=== PATIENT | male | born 2000 | race African-American/Black ===

== ENCOUNTER 2022-03-06 16:56 | Emergency (ER) | payer OTHER ==
[~2022-03-06] VITALS: Ht 172.7 cm; Wt 102.8 kg
[2022-03-06] MEDS ORDERED: ALBUTEROL 90 MCG/ACT 8GM HFA INHALER INH ONE (19:50)
[2022-03-06] MEDS ORDERED: ALBU83IN NEB (21:05)
[2022-03-06] MEDS ORDERED: PROAAER10 INH (21:05)
[2022-03-06 21:09] VITALS: BP 134/72
== END 2022-03-06 21:12 | disposition home or self-care (01) ==
LOC: M ED 16:56
DX: J45.901 Unspecified asthma with (acute) exacerbation (principal); Z76.0 Encounter for issue of repeat prescription; Z91.018 Allergy to other foods

== ENCOUNTER → 2022-10-08 | Outpatient (CLI) | payer OTHER ==
[~2022-10-08] MED LIST: ALBU2.5V10 NEB; PROAAER10 INH
== END ==
LOC: M CARPUL 09:23
PROVIDERS: ATTEND Physician Assistant
DX: R06.00 Dyspnea, unspecified (principal)

== ENCOUNTER 2024-03-16 08:53 | Emergency (ER) | payer OTHER ==
[~2024-03-16] VITALS: Ht 175.3 cm; Wt 103.6 kg
[2024-03-16] MEDS: IPRATROPIUM 0.5MG/ALBUTEROL 2.5MG INH SOL UD 3ML (DUONEB) NEB ONE (10:00)
[2024-03-16] MEDS ORDERED: FLUT1BLS2 (10:12)
[2024-03-16] MEDS ORDERED: nyquil (10:12)
[2024-03-16 11:23] VITALS: BP 133/60; TEMP 97.9; O2SAT 96
[2024-03-16] MEDS ORDERED: PRED20TA PO (11:23)
== END 2024-03-16 11:30 | disposition home or self-care (01) ==
LOC: M ED 08:53
DX: J06.9 Acute upper respiratory infection, unspecified (principal); J45.901 Unspecified asthma with (acute) exacerbation; Z91.013 Allergy to seafood; Z79.52 Long term (current) use of systemic steroids; Z79.899 Other long term (current) drug therapy